=== PATIENT | female | born 1970 | race African-American/Black ===

== ENCOUNTER 2023-08-16 00:34 | Emergency (ER) | payer MEDICAID ==
[~2023-08-16] VITALS: Ht 167.6 cm; Wt 65.8 kg
[2023-08-16 00:37] VITALS: O2SAT 98
[2023-08-16 01:22] LABS: *URINE HCG, QUAL NEGATIVE (NEGATIVE)
[2023-08-16 01:23] LABS: *BILIRUBIN,URIN NEGATIVE (NEGATIVE); *BLOOD, URINE 3+ (NEGATIVE); *CLARITY,URINE SLIGHTLY CLOUDY (CLEAR); *KETONES,URINE NEGATIVE (NEGATIVE); *PROTEIN,URINE 2+ (NEGATIVE); LEUKOCYTE ESTERASE ,URINE 3+ (NEGATIVE); NITRITE, URINE POSITIVE (NEGATIVE); UGLUCOSE NEGATIVE (NEGATIVE)
[2023-08-16] MEDS ORDERED: SULF1TAB48 PO (02:26)
[2023-08-16] MEDS ORDERED: SULFAMETH/TRIMETH 800/160 MG TABLET ONE (02:30)
[2023-08-16] MEDS ORDERED: ACETAMINOPHEN/CODEINE 300-30 MG TABLET ONE (02:30)
[2023-08-16] MEDS ORDERED: ACETAMINOPHEN 500 MG TABLET ONE (02:31)
[2023-08-16] MEDS: ACETAMINOPHEN 500 MG TABLET PO ONE (02:35)
[2023-08-16] MEDS: SULFAMETH/TRIMETH 800/160 MG TABLET PO ONE (02:35)
[2023-08-16 03:01] LABS: RBC,URINE 50-80 /HPF (0-3)
[2023-08-16 03:03] LABS: SQUAMOUS EPITHELIAL CELL,UR MODERATE /HPF (NONE SEEN); WBC,URINE 20-50 /HPF (0-3)
[2023-08-16 03:04] LABS: BACTERIA,URINE MODERATE /HPF (NONE SEEN)
== END 2023-08-16 02:35 | disposition home or self-care (01) ==
LOC: ER 00:45
DX: N39.0 Urinary tract infection, site not specified (principal); R10.2 Pelvic and perineal pain; Z79.899 Other long term (current) drug therapy
CPT/HCPCS: 84703; A4606; A4663; A9150